=== PATIENT | female | born 1980 | race African-American/Black ===

== ENCOUNTER 2017-02-18 10:11 | Inpatient (IN) | payer OTHER ==
[~2017-02-18] VITALS: Ht 162.6 cm; Wt 75.3 kg
--- NOTE | ~2017-02-18 | S ---
[facility] [place] [address] SURGICAL PATH RPT PROCEDURE Name: ANITA HEALY Room #: 459-P DIS IN M.R.#: [id number] Admission: 02/18/17 Date of : 78 Discharge: 02/20/17 Report #: [id number] Path Case #: [id number] PATHOLOGY REPORT COLLECTION DATE: 02/19/2017 RECEIVED DATE: 02/19/2017 SUBMITTING PHYS: Dr. Marcus Linares, OTHER PHYS: Dr. Brandon Henao SPECIMEN(S) RECEIVED: A.Gallbladder * * * * * * * * * * * * FINAL DIAGNOSIS: Gallbladder, cholecystectomy: - Mild chronic cholecystitis. - Cholelithiasis. (IUV:mml; 02/23/2017) PATHOLOGIST: Shasta Yun M.D. REPORT ELECTRONICALLY SIGNED BY: Shasta Yun M.D. DATE/TIME: 02/23/2017 16:38 * * * * * * * * * * * * GROSS PATHOLOGY: Received in formalin labeled "Anita Healy gallbladder," is a a 0.2 x 4.9 x 1.6 cm, previously opened gallbladder with bluepinkish, slightly wrinkled, and vascular serosal surfaces. Opening the gallbladder reveals dark sultana, grainy mucosa and an average wall thickness of 0.3 cm. Calculi are present, measuring 0.4-1.4 cm in maximum dimension, possessing a dark brown color, and feeling friable to the touch. No masses are noted grossly. Tray Checker sections from the body and fundus are submitted along with the proximal margin in cassette A1. (TSD; 02/19/2017) CLINICAL HISTORY: Cholelithiasis INITIAL CPT CODE(S): A; 23970 Professional services performed by [facility] at [facility] [address], [place], [place] [id number] [place] [address] [address] [place] [address] SURGICAL PATH RPT PROCEDURE Name: ANITA HEALY Room #: 459-P DIS IN M.R.#: [id number] Admission: 02/18/17 Date of : 78 Discharge: 02/20/17 Report #: [id number] Path Case #: [id number] Technical services performed by [facility] at [address] [place] [address], [address] [address]. CC: Dixon Guzman [facility] [address] [place] [address] PHONE: [phone] DIRECTOR: Armando Quijano M.D. * * * END OF REPORT * * *
--- NOTE | ~2017-02-18 | EKG ---
[address] [place] [address] ELECTROCARDIOGRAM REPORT Name: ANITA BRAVO Room #: 459-P ADM IN M.R.#: [id number] Admission: 02/18/17 Attend Phys: Stanislav Taylor MD Discharge: Date of : 78 Report #: [id number] THIS REPORT FOR: //name// [facility] ED Test Date: 2017-02-18 Test Time: 10:20:34 Pat Name: ANITA BRAVO Department: Room: 45 Gender: F Sales Demonstrator: [id number] : 1980 Requested By: Sunitha Ellington Order Number: [id number] MD: Charles Anaya Measurements Intervals [place] Rate: 76 P: [place]: QRS: 21 QRSD: 114 T: 23 QT: 414 QTc: 466 Interpretive Statements Sinus rhythm Nonspecific T wave abnormality No previous ECG available for comparison Electronically Signed On 02-19-2017 8:29:48 CDT by Charles Anaya [email or web address] <ELECTRONICALLY SIGNED> By: Charles Anaya MD, [facility] 02/19/17 0829 1020 1020 Charles Anaya MD, FACC /EPI
[2017-02-18 11:05] LABS: HEMATOCRIT 36.3 % (37.0-47.0); HEMOGLOBIN 12.6 gm/dL (12.0-15.0); MCH 31.7 pg (26.0-34.0); MCHC 34.7 g/dL (28.0-37.0); MCV 91.2 fL (80.0-100.0); PLATELET COUNT 244 thou/uL (150-400); RBC 3.98 mil/uL (4.20-5.00); RDW 13.1 % (10.5-14.5); WBC 6.9 thou/uL (4.0-11.0)
[2017-02-18 11:11] LABS: MANUAL DIFF YES
[2017-02-18 11:13] LABS: CALCIUM 9.4 mg/dL (8.5-10.1); CREATININE 0.7 mg/dL (0.6-1.0); POTASSIUM 3.8 mmol/L (3.5-5.1)
[2017-02-18 11:19] LABS: ALBUMIN 4.2 g/dL (3.4-5.0); TOTAL BILIRUBIN 0.7 mg/dL (<0.1-1.0); TOTAL PROTEIN 8.1 g/dL (6.4-8.2)
[2017-02-18 12:25] LABS: ABSOLUTE NEUTROPHILS 6.1 thou/uL (1.4-8.2); ANISOCYTOSIS SLIGHT; TOTAL CELL COUNT 100
[2017-02-18 15:48] VITALS: BP 102/61
[2017-02-18 16:19] VITALS: BP 101/65
[2017-02-18 19:50] VITALS: BP 107/71
[2017-02-19] VITALS (10 sets, daily range): BP systolic 84–142; BP diastolic 54–117
[2017-02-19 06:06] LABS: HEMATOCRIT 34.2 % (37.0-47.0); HEMOGLOBIN 11.7 gm/dL (12.0-15.0); MCH 31.9 pg (26.0-34.0); MCHC 34.2 g/dL (28.0-37.0); MCV 93.2 fL (80.0-100.0); RBC 3.67 mil/uL (4.20-5.00); RDW 13.4 % (10.5-14.5); WBC 6.2 thou/uL (4.0-11.0)
[2017-02-19 06:25] LABS: ALBUMIN 3.1 g/dL (3.4-5.0); CALCIUM 8.3 mg/dL (8.5-10.1); CREATININE 0.9 mg/dL (0.6-1.0); POTASSIUM 3.7 mmol/L (3.5-5.1); TOTAL BILIRUBIN 0.6 mg/dL (<0.1-1.0); TOTAL PROTEIN 6.3 g/dL (6.4-8.2)
[2017-02-19 06:38] LABS: URINE BILIRUBIN NEGATIVE (Negative); URINE BLOOD NEGATIVE (Negative); URINE COLOR YELLOW; URINE GLUCOSE-RANDOM* NEGATIVE (Negative); URINE KETONES TRACE (Negative); URINE NITRITE NEGATIVE (Negative); URINE PROTEIN (DIPSTICK) NEGATIVE (Negative); URINE SPECIFIC GRAVITY 1.025 (1.003-1.035); URINE UROBILINOGEN 0.2 E.U./dl (0.2-1.0)
[2017-02-20 00:13] VITALS: BP 95/57
[2017-02-20 03:20] VITALS: BP 103/63
[2017-02-20 07:37] VITALS: BP 117/74
[2017-02-20] MEDS ORDERED: LEVAQUIN 500 M500 M2 PO (09:21)
[2017-02-20] MEDS ORDERED: HYDROCODONE-APA1 TA1 PO (09:21)
[2017-02-20] MEDS ORDERED: DIFLUCAN200 MG PO (09:21)
[2017-02-20 14:09] VITALS: BP 117/74
== END 2017-02-20 14:56 | disposition home or self-care (01) | DRG 417 ==
LOC: ER 10:11 → 4W 14:58 → EROBS 14:58 → 4W 16:06
PROVIDERS: Family Medicine; Physician Assistant
PROC: 0FT44ZZ Resection of Gallbladder, Percutaneous Endoscopic Approach (ICD-10-PCS; principal; 2017-02-19)
PROC: BF131ZZ Fluoroscopy of Gallbladder and Bile Ducts using Low Osmolar Contrast (ICD-10-PCS; principal; 2017-02-19)
DX: K80.00 Calculus of gallbladder with acute cholecystitis without obstruction (principal); J18.9 Pneumonia, unspecified organism; G89.18 Other acute postprocedural pain; Z85.3 Personal history of malignant neoplasm of breast; Z90.13 Acquired absence of bilateral breasts and nipples; Z92.3 Personal history of irradiation; Z92.21 Personal history of antineoplastic chemotherapy
CPT/HCPCS: 10047; 50010; 50101; 50249; 50411; 50555; 50558; 50962; 51975; 52265; 53307; 53310; 54022; 54118; 55245; 55317; 56462; 56525; 56526; 62110; 62900; 70005